=== PATIENT | female | born 1990 | race Asian ===

== ENCOUNTER 2024-02-01 06:10 | Day surgery (SDC) | payer OTHER, SELFPAY ==
[2024-02-01] VITALS (8 sets, daily range): BP systolic 96–111; BP diastolic 66–82; BMI 20.6
== END 2024-02-01 11:00 | disposition home or self-care (01) ==
LOC: SDS 06:10
PROVIDERS: ATTENDING PHYSICIAN Internal Medicine Gastroenterology
DX: K31.89 Other diseases of stomach and duodenum (principal)
CPT/HCPCS: 43237